=== PATIENT | female | born 1960 | race African-American/Black ===

== ENCOUNTER 2016-09-18 14:56 | Emergency (ER) | payer MEDICAID ==
[~2016-09-18] VITALS: Ht 165.1 cm; Wt 105.7 kg
[~2016-09-18 14:56] MED LIST: ANTIVERT25 MG ORAL; CYCLOBENZAPRINE10 MG ORAL; IBUPROFEN600 MG ORAL; MECLIZINE HCL25 MG ORAL; NAPROSYN375 M1 ORAL; NAPROSYN500 M1 ORAL; NKM; ZOFRAN ODT4 MG ORAL
[2016-09-18 16:39] VITALS: BP 125/81
[2016-09-18 16:57] VITALS: BP 125/81
--- NOTE | 2016-09-18 17:35 | Emergency Room Report ---
History of Present Illness General Chief Complaint: Headache Source: Patient Present Illness HPI 56-year-old female presents to ED for evaluation. States that yesterday when talking to family members she felt a sudden "burst" in her head. States there is minimal pain in immediately resolved. Patient states that she's had similar pains symptoms in the past. Nothing different today. Patient is here for evaluation. Patient notes headache today as well. Throbbing, 5/10 across the forehead. Denies photophobia, blurry vision, nausea or vomiting. Denies neck stiffness. Denies fevers or chills. No other aggravating or relieving factors. Denies any other associated symptom Allergies: Coded Allergies: PENICILLINS (Unverified Allergy, Severe, Shortness of Breath, 06/23/14) EGG (Verified Allergy, Mild, 03/17/15) AMOXICILLIN (Verified Allergy, Unknown, 07/21/13) NUT - UNSPECIFIED (Verified Allergy, Unknown, 03/17/15) SULFONYLUREAS (Verified Allergy, Unknown, 07/21/13) SULFUR DIOXIDE (Verified Allergy, Unknown, 02/24/16) Sesame Seed (Verified Allergy, Unknown, 03/17/15) Patient History Past Medical History: none Past Surgical History: none Pertinent Family History: none Social History: Denies: alcohol use, drug use, smoking Now: No Immunizations: UTD Reviewed Nursing Documentation: PMH: Agreed, PSxH: Agreed Nursing Documentation-PMH Hx Cardiac Problems: No - Thyroid problem Hx Hypertension: No Hx Pacemaker: No Hx Asthma: No Hx COPD: No Hx Cancer: No Hx Neurological Problems: No - Steel lizzy in left hip 1992 Hx Cerebrovascular Accident: No Hx Seizures: No Review of Systems All Other Systems: negative except mentioned in HPI Physical Exam Vital Signs Date Time Temp Pulse Resp B/P Pulse Ox O2 Delivery O2 Flow Rate FiO2 09/18/16 15:41 98.2 75 20 137/88 96 Room Air Sp02 EP Interpretation: reviewed, normal General Appearance: no apparent distress, alert, GCS 15, non-toxic Head: normocephalic, atraumatic Eyes: bilateral eye PERRL, bilateral eye normal inspection ENT: hearing grossly normal, normal pharynx, no angioedema, normal voice Neck: full range of motion, supple, no meningismus, supple/symm/no masses Respiratory: chest non-tender, lungs clear, normal breath sounds, speaking full sentences Cardiovascular #1: regular rate, rhythm, no edema Cardiovascular #2: 2+ carotid (R), 2+ carotid (L), 2+ radial (R), 2+ radial (L) , 2+ dorsalis pedis (R), 2+ dorsalis pedis (L) Gastrointestinal: normal bowel sounds, non tender, soft, non-distended, no guarding, no rebound Rectal: deferred Genitourinary: normal inspection, no CVA tenderness Musculoskeletal: back normal, gait/station normal, normal range of motion, non- tender Neurologic: alert, oriented x3, responsive, motor strength/tone normal, sensory intact, speech normal Psychiatric: judgement/insight normal, memory normal, mood/affect normal, no suicidal/homicidal ideation Reflexes: 3+ bicep (R), 3+ bicep (L), 3+ tricep (R), 3+ tricep (L), 3+ knee (R) , 3+ knee (L) Skin: normal color, no rash, warm/dry, well hydrated Lymphatic: no adenopathy Medical Decision Making Diagnostic Impression: Primary Impression: Headache Qualified Codes: R51 - Headache ER Course Hospital Course 56-year-old female presents ED complaining of "burst" in head with headache. Differential diagnoses include: skull fx, intracranial injury, concussion Clinical course Patient placed on stretcher. After initial history physical exam reveals a middle-aged female in no acute distress. There is no focal neurological deficits. No neck stiffness. Patient has steady gait and normal cerebellar exam Given presentation we will order a head CT CT head shows no acute process. Reassurance given Diagnosis - headache Stable and discharged to home. Followup with PMD. Return to ED if symptoms recur or worsen CT/MRI/US Diagnostic Results CT/MRI/US Diagnostic Results : Imaging Test Ordered: CT head Impression no acute process Last Vital Signs Date Time Temp Pulse Resp B/P Pulse Ox O2 Delivery O2 Flow Rate FiO2 09/18/16 16:57 98.1 75 15 125/81 98 Room Air Status: improved Disposition: HOME, SELF-CARE Condition: Stable Referrals: [facility],REFERRING (PCP) Patient Instructions: Tension Headache SARAH BALL M.D. Sep 18, 2016 17:35
--- NOTE | 2016-09-19 09:07 | Diagnostic Imaging Report ---
Indication: H/A Technique: Continuous helical CT scanning of the head was performed without intravenous contrast material. Axial and coronal 5 mm sections were generated. Dose: Total Dose Length Product - DLP [address] Dose Index - CTDIvol(s) 70.38 mGy. Comparison:07/21/2013 Findings: The ventricular system is normal in size and configuration. There is no shift of midline structures. No abnormal extra-axial fluid collections are noted. There is no evidence of intracerebral bleeding. No other abnormal high or low density areas are noted within the brain. Impression: No change from prior examination. Normal CT scan of the head without contrast material. This agrees with the reading. The CT scanner at [facility] is accredited by the [employer] and the scans are performed using protocols designed to limit radiation exposure to as low as reasonably achievable to attain images of sufficient resolution adequate for diagnostic evaluation.
== END 2016-09-18 17:33 | disposition home or self-care (01) ==
LOC: EMR 16:58
DX: R51 Headache (principal); Z88.0 Allergy status to penicillin; Z91.012 Allergy to eggs; Z88.1 Allergy status to other antibiotic agents; Z91.018 Allergy to other foods
CPT/HCPCS: 70450; 99284

== ENCOUNTER 2017-06-19 19:09 | Emergency (ER) | payer MEDICAID ==
[~2017-06-19] VITALS: Ht 165.1 cm; Wt 102.5 kg
[2017-06-19 19:45] VITALS: BP_SYST 137; BP_SYST 138; BP_SYST 147; BP_DIAS 82; BP_DIAS 85; BP_DIAS 87
[2017-06-19 20:15] LABS: BASOPHILS % (AUTO) 0.7 % (0.0-2.0); EOSINOPHILS % (AUTO) 3.6 % (0.0-3.0); LYMPHOCYTES % (AUTO) 43.7 % (20.0-45.0); MEAN CORPUSCULAR HEMOGLOBIN 27.2 PG (27.0-31.0); MEAN CORPUSCULAR HGB CONC 31.5 G/DL (32.0-36.0); MEAN CORPUSCULAR VOLUME 86 FL (80-99); MEAN PLATELET VOLUME 7.3 FL (6.5-10.1); NEUTROPHILS % (AUTO) 46.1 % (45.0-75.0); PLATELET COUNT 257 K/UL (150-450); RED BLOOD COUNT 4.82 M/UL (4.20-5.40); RED CELL DISTRIBUTION WIDTH 14.2 % (11.6-14.8)
[2017-06-19 20:27] LABS: ANION GAP 10 mmol/L (5-15); CALCIUM 9.8 MG/DL (8.5-10.1); CARBON DIOXIDE 28 MMOL/L (21-32); CHLORIDE 103 MMOL/L (98-107); GLOMERULAR FILTRATION RATE > 60 mL/min (>60); POTASSIUM 3.9 MMOL/L (3.5-5.1); SODIUM 141 MMOL/L (136-145)
[2017-06-19 20:28] LABS: PROTHROMBIN TIME 10.3 SEC (9.30-11.50)
[2017-06-19] MEDS: Sodium Chloride 500ML 550 ML IV SCH ×2 (20:34→22:23)
[2017-06-19 20:40] LABS: ALANINE AMINOTRANSFERASE 24 U/L (12-78); ALBUMIN/GLOBULIN RATIO 0.6 (1.0-2.7); ASPARTATE AMINO TRANSFERASE 20 U/L (15-37); THYROID STIMULATING HORMONE 1.332 uiU/mL (0.358-3.740); TOTAL PROTEIN 8.3 G/DL (6.4-8.2)
[2017-06-19] MEDS ORDERED: LISINOPRIL2.5 MG ORAL (20:40)
[2017-06-19 21:29] LABS: ERYTHROCYTE SEDIMENTATION RATE 60 MM/HR (0-30)
[2017-06-19 21:45] LABS: APPEARANCE,URINE CLEAR; KETONES,URINE NEGATIVE (NEGATIVE); LEUKOCYTE ESTERASE ,URINE NEGATIVE (NEGATIVE); NITRITE,URINE NEGATIVE (NEGATIVE); PH,URINE 6 (4.5-8.0); PROTEIN,URINE NEGATIVE (NEGATIVE); UROBILINOGEN,URINE NORMAL MG/DL (0.0-1.0)
[2017-06-19 21:49] VITALS: BP 125/89
[2017-06-19 22:01] LABS: BACTERIA,URINE FEW /HPF; SQUAMOUS EPITHELIAL CELL,UR FEW /LPF (NONE/OCC); WBC,URINE 0-2 /HPF (0 - 2)
[2017-06-19 23:13] VITALS: BP 107/81
--- NOTE | 2017-06-19 23:25 | Emergency Room Report ---
History of Present Illness General Chief Complaint: General Complaint Source: Patient Present Illness HPI Patient was started on Lisinopril last . She took it 2 days and felt awful with low blood pressure. She stopped but still felt not well. Palpitations BP in MD office to start was 122/96. Some chest pressure. No NVD. No dysuria. Feels slightly dizzy when stands. No fevers. LNMP was 2 years ago, but still some flashes. No polies. Increased stress. Allergies: Coded Allergies: PENICILLINS (Unverified Allergy, Severe, Shortness of Breath, 06/23/14) EGG (Verified Allergy, Mild, 03/17/15) AMOXICILLIN (Verified Allergy, Unknown, 07/21/13) NUT - UNSPECIFIED (Verified Allergy, Unknown, 03/17/15) SULFONYLUREAS (Verified Allergy, Unknown, 07/21/13) SULFUR DIOXIDE (Verified Allergy, Unknown, 02/24/16) Sesame Seed (Verified Allergy, Unknown, 03/17/15) Patient History Past Medical History: see triage record Social History: Denies: smoking, alcohol use, drug use Social History Narrative caring for ill father and now mother also ill Last Menstrual Period: None Reviewed Nursing Documentation: PMH: Agreed, PSxH: Agreed Nursing Documentation-PMH Hx Cardiac Problems: No - Thyroid problem Hx Hypertension: No Hx Pacemaker: No Hx Asthma: No Hx COPD: No Hx Cancer: No Hx Neurological Problems: No - Steel lizzy in left hip 1992 Hx Cerebrovascular Accident: No Hx Seizures: No Review of Systems All Other Systems: negative except mentioned in HPI Physical Exam Vital Signs Date Time Temp Pulse Resp B/P (MAP) Pulse Ox O2 Delivery O2 Flow Rate FiO2 06/19/17 19:16 99.1 110 18 147/91 98 Room Air Sp02 EP Interpretation: reviewed, normal General Appearance: well appearing, no apparent distress, GCS 15 Head: normocephalic Eyes: bilateral eye normal inspection, bilateral eye PERRL ENT: moist mucus membranes Neck: supple Respiratory: lungs clear, normal breath sounds Cardiovascular #1: regular rate, rhythm Cardiovascular #2: 2+ radial (R) Gastrointestinal: normal inspection, normal bowel sounds, non tender, no mass, non-distended Musculoskeletal: back normal, gait/station normal, normal range of motion Neurologic: alert, oriented x3, grossly normal Psychiatric: anxious Skin: normal inspection, warm/dry Medical Decision Making Diagnostic Impression: Primary Impression: Labile hypertension Additional Impression: Stress ER Course Patient presents with multiple symptoms after taking lisinopril for 2 days. DDx : electrolyte abnormalities, hypotension, adverse reaction to medication, anxiety/stress, thyroid dysfunction amongst others. Hx and exam against PE. Evaluation with EKG, CXR, labs. Treatment with gentle hydration and consider ativan. EKG without injury. CXR normal. Labs neg troponin and rest normal. Improved with treatment. Discussed plan for BP management and stress reduction. Patient stable for outpatient observation and treatment. Laboratory Tests Test 06/19/17 20:00 06/19/17 21:30 White Blood Count 7.0 K/UL (4.8-10.8) Red Blood Count 4.82 M/UL (4.20-5.40) Hemoglobin 13.1 G/DL (12.0-16.0) Hematocrit 41.6 % (37.0-47.0) Mean Corpuscular Volume 86 FL (80-99) Mean Corpuscular Hemoglobin 27.2 PG (27.0-31.0) Mean Corpuscular Hemoglobin Concent 31.5 G/DL (32.0-36.0) L Red Cell Distribution Width 14.2 % (11.6-14.8) Platelet Count 257 K/UL (150-450) Mean Platelet Volume 7.3 FL (6.5-10.1) Neutrophils (%) (Auto) 46.1 % (45.0-75.0) Lymphocytes (%) (Auto) 43.7 % (20.0-45.0) Monocytes (%) (Auto) 6.0 % (1.0-10.0) Eosinophils (%) (Auto) 3.6 % (0.0-3.0) H Basophils (%) (Auto) 0.7 % (0.0-2.0) Erythrocyte Sedimentation Rate 60 MM/HR (0-30) H Prothrombin Time 10.3 SEC (9.30-11.50) Prothrombin Time INR 1.0 (0.9-1.1) PTT 27 SEC (23-33) Sodium Level 141 MMOL/L (136-145) Potassium Level 3.9 MMOL/L (3.5-5.1) Chloride Level 103 MMOL/L (98-107) Carbon Dioxide Level 28 MMOL/L (21-32) Anion Gap 10 mmol/L (5-15) Blood Urea Nitrogen 13 mg/dL (7-18) Creatinine 1.0 MG/DL (0.55-1.30) Estimate Glomerular Filtration Rate > 60 mL/min (>60) Glucose Level 105 MG/DL (74-106) Calcium Level 9.8 MG/DL (8.5-10.1) Total Bilirubin 0.2 MG/DL (0.2-1.0) Aspartate Amino Transferase (AST) 20 U/L (15-37) Alanine Aminotransferase (ALT) 24 U/L (12-78) Alkaline Phosphatase 101 U/L (46-116) Total Creatine Kinase 122 U/L (26-308) Troponin I 0.000 ng/mL (0.000-0.056) Pro-B-Type Natriuretic Peptide 27 pg/mL (0-125) Total Protein 8.3 G/DL (6.4-8.2) H Albumin 3.2 G/DL (3.4-5.0) L Globulin 5.1 g/dL Albumin/Globulin Ratio 0.6 (1.0-2.7) L Thyroid Stimulating Hormone (TSH) 1.332 uiU/mL (0.358-3.740) Urine Color Pale yellow Urine Appearance Clear Urine pH 6 (4.5-8.0) Urine Specific [place] 1.005 (1.005-1.035) Urine Protein Negative (NEGATIVE) Urine Glucose (UA) Negative (NEGATIVE) Urine Ketones Negative (NEGATIVE) Urine Occult Blood 1+ (NEGATIVE) H Urine Nitrite Negative (NEGATIVE) Urine Bilirubin Negative (NEGATIVE) Urine Urobilinogen Normal MG/DL (0.0-1.0) Urine Leukocyte Esterase Negative (NEGATIVE) Urine RBC 2-4 /HPF (0 - 2) H Urine WBC 0-2 /HPF (0 - 2) Urine Squamous Epithelial Cells Few /LPF (NONE/OCC) Urine Bacteria Few /HPF (NONE) EKG Diagnostic Results Rate: normal Rhythm: NSR ST Segments: no acute changes Rhythm Strip Diag. Results EP Interpretation: yes Rhythm: NSR, no PVC's, no ectopy Chest X-Ray Diagnostic Results Chest X-Ray Diagnostic Results : Chest X-Ray Ordered: Yes # of Views/Limited/Complete: 1 View Indication: Other Interpretation: no consolidation, no effusion Impression: No acute disease Electronically Signed by: Gonzalez Rivero MD Last Vital Signs Date Time Temp Pulse Resp B/P (MAP) Pulse Ox O2 Delivery O2 Flow Rate FiO2 06/19/17 23:40 98.6 84 17 110/79 100 Room Air Status: improved Disposition: HOME, SELF-CARE Condition: Improved Scripts Lorazepam* (ATIVAN*) 0.5 Mg Tablet 0.5 MG ORAL THREE TIMES A DAY, #10 TAB Prov: Gonzalez Rivero M.D. 06/19/17 Referrals: NON PHYSICIAN (PCP) Gonzalez Rivero M.D. Jun 19, 2017 23:25
[2017-06-19] MEDS ORDERED: ATIVAN0.5 MG ORAL (23:27)
[2017-06-19 23:30] VITALS: BP 110/79
[2017-06-19 23:40] VITALS: BP 110/79
--- NOTE | 2017-06-20 10:27 | Diagnostic Imaging Report ---
Indication: Chest pain Technique: One view of the chest Comparison: none Findings: Lungs and pleural spaces are clear. Heart size is normal. Mildly ectatic tortuous aorta Impression: No acute process
--- NOTE | 2017-06-20 19:22 | Cardiology Report ---
APPROVED REPORT EKG Measurement Heart [id number] Normal sinus rhythm Cannot rule out Anterior infarct, age undetermined Abnormal ECG
== END 2017-06-19 23:40 | disposition home or self-care (01) ==
LOC: EMR 20:00
DX: R09.89 Other specified symptoms and signs involving the circulatory and respiratory systems (principal); F43.9 Reaction to severe stress, unspecified; Z91.012 Allergy to eggs; Z91.018 Allergy to other foods; Z88.0 Allergy status to penicillin; Z88.2 Allergy status to sulfonamides
CPT/HCPCS: 36415; 71010; 80053; 81003; 82550; 83880; 84443; 84484; 85025; 85610; 85651; 85730; 93005; 96360; 99284

== ENCOUNTER 2017-06-21 13:00 | Emergency (ER) | payer MEDICAID ==
[~2017-06-21] VITALS: Ht 165.1 cm; Wt 102.1 kg
[~2017-06-21 13:00] MED LIST changes: +ATIVAN0.5 MG ORAL; +LISINOPRIL2.5 MG ORAL
[2017-06-21 14:08] VITALS: BP 127/92
[2017-06-21 14:13] VITALS: BP 128/84
[2017-06-21 14:15] VITALS: BP 136/81
--- NOTE | 2017-06-21 14:46 | Emergency Room Report ---
History of Present Illness General Chief Complaint: General Complaint Present Illness HPI 57 YO Female presents to the ED c/o elevated BP at home "spiking" when she stands and going up to 180/100's acute onset after taking lisinopril for two days, on Jun.17. pt. has since d/c'd medication. pt not sure why her PMD rx' d it to her. Pt. reports feeling of shakiness ever since that comes and goes. PT denies night sweats, changes in sleep or changes in weight. Pt denies swelling in the LE's. Denies CP, Palpitations, LOC, AMS, dizziness, Changes in Vision, Sensation, paresthesias, or a sudden severe headache. Allergies: Coded Allergies: PENICILLINS (Unverified Allergy, Severe, Shortness of Breath, 06/23/14) EGG (Verified Allergy, Mild, 03/17/15) AMOXICILLIN (Verified Allergy, Unknown, 07/21/13) NUT - UNSPECIFIED (Verified Allergy, Unknown, 03/17/15) SULFONYLUREAS (Verified Allergy, Unknown, 07/21/13) SULFUR DIOXIDE (Verified Allergy, Unknown, 02/24/16) Sesame Seed (Verified Allergy, Unknown, 03/17/15) Patient History Past Medical History: see triage record Past Surgical History: none Pertinent Family History: none Now: No Immunizations: UTD Reviewed Nursing Documentation: PMH: Agreed, PSxH: Agreed Nursing Documentation-PMH Hx Cardiac Problems: No - Thyroid problem Hx Hypertension: No Hx Pacemaker: No Hx Asthma: No Hx COPD: No Hx Cancer: No Hx Neurological Problems: No - Steel lizzy in left hip 1992 Hx Cerebrovascular Accident: No Hx Seizures: No Review of Systems All Other Systems: negative except mentioned in HPI Physical Exam Vital Signs Date Time Temp Pulse Resp B/P (MAP) Pulse Ox O2 Delivery O2 Flow Rate FiO2 06/21/17 13:14 98.4 93 18 130/81 99 Room Air Sp02 EP Interpretation: reviewed, normal General Appearance: no apparent distress, alert, GCS 15, non-toxic Head: normocephalic, atraumatic Eyes: bilateral eye normal inspection, bilateral eye PERRL ENT: hearing grossly normal, no angioedema, normal voice Neck: full range of motion, supple/symm/no masses Respiratory: lungs clear, normal breath sounds, speaking full sentences Cardiovascular #1: regular rate, rhythm, no edema Musculoskeletal: back normal, normal range of motion, non-tender Neurologic: alert, oriented x3, responsive, motor strength/tone normal, sensory intact, speech normal, no pronator, other - no facial droop, grossly normal Skin: normal color, no rash, warm/dry, well hydrated Medical Decision Making PA Attestation Dr. carnes is my supervising Physician whom patient management has been discussed with. Diagnostic Impression: Primary Impression: Elevated blood pressure reading ER Course 57 YO Female presents to the ED c/o elevated BP at home "spiking" when she stands and going up to 180/100's acute onset after taking lisinopril for two days, on Jun.17. pt. has since d/c'd medication. pt not sure why her PMD rx' d it to her. Pt. reports feeling of shakiness ever since that comes and goes. PT denies night sweats, changes in sleep or changes in weight. Pt denies swelling in the LE's. Denies CP, Palpitations, LOC, AMS, dizziness, Changes in Vision, Sensation, paresthesias, or a sudden severe headache. Ddx considered but are not limited to HTN, hypochondriasis, anxiety, hyperthyroid just to name a few. Vital signs: are WNL, pt. is afebrile H&PE are most consistent with normal PE ORDERS: none required at this time, the diagnosis is clinical ED INTERVENTIONS: -orthostatic Vital signs were normal. no evidence of dehydration discussed with this patient possibility of anxiety plan significant role in her symptoms. Also discussed with patient that when measuring blood pressure there is a specific way and measuring and certain cuff sizes and that she may be having accurate readings. Discussed with this patient that at this time there is no condition that I would treat pharmacologically and the she is stable for outpatient follow up. I also discussed with this patient that occasion including its metabolites with be out of her system by now. -Encourage patient to utilize her Ativan that she was previously prescribed at her visit here in the emergency department 2 days ago. DISCHARGE: At this time pt. is stable for d/c to home. Will provide printed patient care instructions, and any necessary prescriptions. Care plan and follow up instructions have been discussed with the patient prior to discharge. Last Vital Signs Date Time Temp Pulse Resp B/P (MAP) Pulse Ox O2 Delivery O2 Flow Rate FiO2 12/12/17 14:15 106 136/81 06/21/17 13:14 98.4 18 99 Room Air Disposition: HOME, SELF-CARE Condition: Stable Scripts Blood Pressure Test Kit-Medium (BLOOD PRESSURE MONITOR) 1 Each Kit EACH for For High Blood Pressure, #1 Prov: Ria Bruce 06/21/17 Patient Instructions: Medical Screening Exam Additional Instructions: *Keep BP log Take medications as directed. Follow up with a Primary Care Provider in 3-5 days, even if your symptoms have resolved. --Please review list of primary care clinics, if you do not already have a primary care provider Return sooner to ED if new symptoms occur, or current symptoms become worse. - Please note that this Emergency Department Report was dictated using [employer] preservation officer technology software, occasionally this can lead to erroneous entry secondary to interpretation by the dictation equipment. Ria Bruce Jun 21, 2017 14:45
[2017-06-21] MEDS ORDERED: BLOOD PRESSURE MC (14:52)
[2017-06-21] MEDS ORDERED: LORazepam 0.5mg tab ORAL ONE (15:00)
== END 2017-06-21 14:08 | disposition home or self-care (01) ==
LOC: EMR 13:50
DX: R03.0 Elevated blood-pressure reading, without diagnosis of hypertension (principal); Z88.0 Allergy status to penicillin; Z88.2 Allergy status to sulfonamides; Z91.012 Allergy to eggs; Z91.018 Allergy to other foods
CPT/HCPCS: 99283

== ENCOUNTER 2017-07-21 14:14 | Emergency (ER) | payer MEDICAID ==
[~2017-07-21] VITALS: Ht 165.1 cm; Wt 102.1 kg
[~2017-07-21 14:14] MED LIST changes: +BLOOD PRESSURE MC
[2017-07-21 14:47] VITALS: BP 152/96
[2017-07-21 15:19] LABS: APPEARANCE,URINE CLEAR; BILIRUBIN, URINE NEGATIVE (NEGATIVE); COLOR,URINE PALE YELLOW; GLUCOSE, URINE (UA) NEGATIVE (NEGATIVE); KETONES,URINE NEGATIVE (NEGATIVE); LEUKOCYTE ESTERASE ,URINE 1+ (NEGATIVE); NITRITE,URINE NEGATIVE (NEGATIVE); PH,URINE 6.5 (4.5-8.0); PROTEIN,URINE NEGATIVE (NEGATIVE); UROBILINOGEN,URINE NORMAL MG/DL (0.0-1.0)
[2017-07-21] MEDS ORDERED: TYLENOL COLD M1 EAC3 PO (15:50)
[2017-07-21 15:51] VITALS: BP 141/85
--- NOTE | 2017-07-25 14:50 | Emergency Room Report ---
History of Present Illness General Chief Complaint: General Complaint Source: Patient Present Illness HPI 57-year-old female presents ED complaining of sinus pressure, cough, runny nose. States been there for many days on and off. Denies fevers chills. States cough is productive with yellowish sputum. Afebrile in triage. Denies sore throat. Denies earache. Denies sick contacts or recent travel. No other aggravating or leading factors. Denies any other associated symptoms Allergies: Coded Allergies: PENICILLINS (Unverified Allergy, Severe, Shortness of Breath, 06/23/14) EGG (Verified Allergy, Mild, 03/17/15) AMOXICILLIN (Verified Allergy, Unknown, 07/21/13) NUT - UNSPECIFIED (Verified Allergy, Unknown, 03/17/15) SULFONYLUREAS (Verified Allergy, Unknown, 07/21/13) SULFUR DIOXIDE (Verified Allergy, Unknown, 02/24/16) Sesame Seed (Verified Allergy, Unknown, 03/17/15) Patient History Past Medical History: none Past Surgical History: none Pertinent Family History: none Social History: Denies: smoking, alcohol use, drug use Last Menstrual Period: menopause Now: No Immunizations: UTD Reviewed Nursing Documentation: PMH: Agreed, PSxH: Agreed Nursing Documentation-PMH Past Medical History: No History, Except For Hx Cardiac Problems: No - Thyroid problem Hx Hypertension: No Hx Pacemaker: No Hx Asthma: No Hx COPD: No Hx Cancer: No Hx Neurological Problems: No - Steel lizzy in left hip 1992 Hx Cerebrovascular Accident: No Hx Seizures: No Review of Systems All Other Systems: negative except mentioned in HPI Physical Exam Vital Signs Date Time Temp Pulse Resp B/P (MAP) Pulse Ox O2 Delivery O2 Flow Rate FiO2 07/21/17 14:37 98.8 87 16 152/96 100 Room Air Sp02 EP Interpretation: reviewed, normal General Appearance: no apparent distress, alert, GCS 15, non-toxic Head: normocephalic, atraumatic Eyes: bilateral eye normal inspection, bilateral eye PERRL ENT: hearing grossly normal, normal pharynx, no angioedema, normal voice Neck: full range of motion, supple/symm/no masses Respiratory: chest non-tender, lungs clear, normal breath sounds, speaking full sentences Cardiovascular #1: regular rate, rhythm, no edema Cardiovascular #2: 2+ carotid (R), 2+ carotid (L), 2+ radial (R), 2+ radial (L) , 2+ dorsalis pedis (R), 2+ dorsalis pedis (L) Gastrointestinal: normal bowel sounds, non tender, soft, non-distended, no guarding, no rebound Rectal: deferred Genitourinary: normal inspection, no CVA tenderness Musculoskeletal: back normal, gait/station normal, normal range of motion, non- tender Neurologic: alert, oriented x3, responsive, motor strength/tone normal, sensory intact, speech normal Psychiatric: judgement/insight normal, memory normal, mood/affect normal, no suicidal/homicidal ideation Reflexes: 3+ bicep (R), 3+ bicep (L), 3+ tricep (R), 3+ tricep (L), 3+ knee (R) , 3+ knee (L) Skin: normal color, no rash, warm/dry, well hydrated Lymphatic: no adenopathy Medical Decision Making Diagnostic Impression: Primary Impression: Upper respiratory infection Qualified Codes: J06.9 - Acute upper respiratory infection, unspecified ER Course Hospital Course 57-year-old female presents to ED complaining of cough, runny nose with sinus pressure Differential diagnoses include: URI, pharyngitis, otitis media, asthma Clinical course Patient placed on stretcher. After initial history, physical exam reveals a middle aged female in no acute distress. Bilateral TM unremarkable. No pharyngeal erythema. No tonsillar exudates. No lymphadenopathy. lungs clear. abdomen soft. Clinical findings consistent with URI. Reassurance given. treatment is supportive therapy Diagnosis - URI Stable and discharged home with Rx tylenol mutli symptom. Instructed to followup with PMD. Return to ED if symptoms recur or worsen Last Vital Signs Date Time Temp Pulse Resp B/P (MAP) Pulse Ox O2 Delivery O2 Flow Rate FiO2 07/21/17 15:51 98.8 81 16 141/85 100 Room Air Status: improved Disposition: HOME, SELF-CARE Condition: Stable Scripts D-Methorphan/Pe/Acetaminophen (TYLENOL COLD MULTI-SYMP CAPLET) 1 Each Tablet 1 EACH PO Q6HR, #30 TAB Prov: SARAH BALL M.D. 07/21/17 Referrals: [facility]ERR[facility] (PCP) Patient Instructions: Upper Respiratory Infection, Adult, [id number] SARAH BALL M.D. Jul 25, 2017 14:50
== END 2017-07-21 15:51 | disposition home or self-care (01) ==
LOC: EMR 14:55
DX: J06.9 Acute upper respiratory infection, unspecified (principal); Z88.0 Allergy status to penicillin; Z88.2 Allergy status to sulfonamides; Z91.012 Allergy to eggs; Z91.018 Allergy to other foods
CPT/HCPCS: 81003; 99283

== ENCOUNTER 2017-10-20 10:33 | Emergency (ER) | payer MEDICAID ==
[~2017-10-20] VITALS: Ht 165.1 cm; Wt 99.8 kg
[~2017-10-20 10:33] MED LIST changes: +TYLENOL COLD M1 EAC3 PO
[2017-10-20] MEDS ORDERED: Ketorolac 60mg Inj IM ONE (11:00)
[2017-10-20] MEDS ORDERED: Cyclobenzaprine 10mg Tab ORAL ONE (11:00)
[2017-10-20] MEDS ORDERED: Acetaminophen 500mg (ES) tab ORAL ONE (11:00)
[2017-10-20 12:03] VITALS: BP 139/90
--- NOTE | 2017-10-20 12:49 | Diagnostic Imaging Report ---
Indication: Back pain Comparison: None Findings: 3 views of the lumbar spine were obtained. There is a suspected pars interarticularis defect at L5. No spondylolisthesis is deftly seen. Mild endplate spurs, sclerotic lumbar facets demonstrated. No definite fracture seen. Cholecystectomy clips are present. Bones are osteopenic. IMPRESSION: Suspected spondylolysis at L5. Degenerative changes as described above with osteopenia
--- NOTE | 2017-10-20 13:31 | Emergency Room Report ---
History of Present Illness General Chief Complaint: Lower Back Pain or Injury Source: Patient, Medical Record Present Illness HPI This patient states that 3 days ago she was working in her garden and felt fine that day. She states she was pulling weeds and bending over a lot. She states that the following day she noted pain in her low back. She states the pain also was radiating to her legs. She states the pain was much worse with movement or twisting. She denies trauma. She states she has a history of a bulging disc in her lumbar spine. She denies tingling or numbness. She denies weakness. She denies loss of bowel or bladder control. She has no other complaints. Allergies: Coded Allergies: PENICILLINS (Unverified Allergy, Severe, Shortness of Breath, 06/23/14) EGG (Verified Allergy, Mild, 03/17/15) AMOXICILLIN (Verified Allergy, Unknown, 07/21/13) NUT - UNSPECIFIED (Verified Allergy, Unknown, 03/17/15) SULFONYLUREAS (Verified Allergy, Unknown, 07/21/13) SULFUR DIOXIDE (Verified Allergy, Unknown, 02/24/16) Sesame Seed (Verified Allergy, Unknown, 03/17/15) Patient History Past Medical History: see triage record Social History: Denies: smoking, alcohol use, drug use Last Menstrual Period: 1 yr ago Reviewed Nursing Documentation: PMH: Agreed; PSxH: Agreed Nursing Documentation-PMH Past Medical History: No History, Except For Hx Cardiac Problems: No - Thyroid problem Hx Hypertension: No Hx Pacemaker: No Hx Asthma: No Hx COPD: No Hx Cancer: No Hx Neurological Problems: No - Steel lizzy in left hip 1992 Hx Cerebrovascular Accident: No Hx Seizures: No Review of Systems All Other Systems: negative except mentioned in HPI Physical Exam Vital Signs Date Time Temp Pulse Resp B/P (MAP) Pulse Ox O2 Delivery O2 Flow Rate FiO2 10/20/17 10:37 98.0 74 18 139/90 95 Room Air 98.1 Sp02 EP Interpretation: reviewed, normal General Appearance: no apparent distress, alert, GCS 15, non-toxic Head: normocephalic, atraumatic Eyes: bilateral eye normal inspection, bilateral eye PERRL ENT: hearing grossly normal, normal pharynx, no angioedema, normal voice Neck: full range of motion, supple/symm/no masses Respiratory: chest non-tender, lungs clear, normal breath sounds, speaking full sentences Cardiovascular #1: regular rate, rhythm, no edema Gastrointestinal: normal bowel sounds, non tender, soft, non-distended, no guarding, no rebound Rectal: deferred Musculoskeletal: other - Pain with ambulation. Tender to palpation along the mid lumbar spine and left paraspinal muscles. Neurologic: alert, oriented x3, responsive, motor strength/tone normal, sensory intact, speech normal Psychiatric: judgement/insight normal, memory normal, mood/affect normal, no suicidal/homicidal ideation Skin: normal color, no rash, warm/dry, well hydrated Medical Decision Making Diagnostic Impression: Primary Impression: Low back strain Additional Impression: Muscle spasm ER Course This patient has a clinical presentation consistent with low back muscle strain. There are no red flags on physical exam or history that would make me concerned for underlying fracture. I did obtain a lumbar spine x-ray. 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 However , there is no evidence of spondylolisthesis. The patient has pain with range of motion and has tenderness to palpation along the muscle. There is no evidence of compartment syndrome. There is no neurologic deficit. The patient was instructed on supportive home measures. No emergency medical condition was identified. The patient was given return precautions and followup instructions. Other X-Ray Diagnostic Results Other X-Ray Diagnostic Results : X-Ray ordered: Yas # of Views/Limited Vs Complete: Complete Indication: Pain EP Interpretation: No Interpretation: no dislocation, no soft tissue swelling, no fractures Impression: No acute disease Electronically Signed by: Marylou Last Vital Signs Date Time Temp Pulse Resp B/P (MAP) Pulse Ox O2 Delivery O2 Flow Rate FiO2 10/20/17 12:30 98.0 10/20/17 12:03 18 139/90 95 Room Air 10/20/17 10:37 74 Status: improved Disposition: HOME, SELF-CARE Condition: Improved Scripts Cyclobenzaprine Hcl* (FLEXERIL*) 10 Mg Tablet 10 MG ORAL TID PRN for Muscle Spasm, #20 TAB Prov: HUBERT PORTILLO D.OCourtney 10/20/17 Acetaminophen* (ACETAMINOPHEN EXTRA STRENGTH*) 500 Mg Tablet 500 MG ORAL Q8H PRN for Fever/Headache/Mild Pain, #30 TAB Prov: HUBERT PORTILLO D.O. 10/20/17 Lidocaine (Lidoderm) 1 Each Adh..patch 1 PATCH TOPIC DAILY, #7 PATCH 0 Refills Patch(es) may remain in place for up to 12 hours in any 24-hour period. Prov: HUBERT PORTILLO D.O. 10/20/17 Referrals: [facility]ERR[facility] (PCP) Patient Instructions: Low Back Sprain With [facility], Lumbosacral Strain HUBERT PORTILLO D.O. Oct 20, 2017 13:31
[2017-10-20] MEDS ORDERED: CYCLOBENZAPRINE10 MG ORAL (14:10)
[2017-10-20] MEDS ORDERED: ACETAMINOPHEN500 M3 ORAL (14:10)
[2017-10-20] MEDS ORDERED: LIDODERM700 M1 TOPIC (14:10)
[2017-10-20 14:15] VITALS: BP 130/72
== END 2017-10-20 14:15 | disposition home or self-care (01) ==
LOC: EMR 11:58
DX: S39.012A Strain of muscle, fascia and tendon of lower back, initial encounter (principal); X50.1XXA Overexertion from prolonged static or awkward postures, initial encounter; Y93.H2 Activity, gardening and landscaping; Y92.007 Garden or yard of unspecified non-institutional (private) residence as the place of occurrence of the external cause; M62.830 Muscle spasm of back; M85.88 Other specified disorders of bone density and structure, other site; Z88.0 Allergy status to penicillin; Z88.2 Allergy status to sulfonamides; Z91.012 Allergy to eggs; Z91.018 Allergy to other foods
CPT/HCPCS: 72110; 96372; 99284

== ENCOUNTER 2018-03-26 08:38 | Emergency (ER) | payer MEDICAID ==
[~2018-03-26] VITALS: Ht 165.1 cm; Wt 97.1 kg
[~2018-03-26 08:38] MED LIST changes: +ACETAMINOPHEN500 M3 ORAL; +LIDODERM700 M1 TOPIC
[2018-03-26 09:30] LABS: EOSINOPHILS % (AUTO) 3.8 % (0.0-3.0); HEMATOCRIT 39.9 % (37.0-47.0); HEMOGLOBIN 12.5 G/DL (12.0-16.0); LYMPHOCYTES % (AUTO) 29.4 % (20.0-45.0); MEAN CORPUSCULAR VOLUME 85 FL (80-99); MONOCYTES % (AUTO) 3.7 % (1.0-10.0); NEUTROPHILS % (AUTO) 62.1 % (45.0-75.0); PLATELET COUNT 230 K/UL (150-450); RED BLOOD COUNT 4.71 M/UL (4.20-5.40); RED CELL DISTRIBUTION WIDTH 13.5 % (11.6-14.8); WHITE BLOOD COUNT 4.3 K/UL (4.8-10.8)
--- NOTE | 2018-03-26 09:31 | Emergency Room Report ---
History of Present Illness General Chief Complaint: Abdominal Pain Source: Patient Present Illness HPI Patient presents with complaints of epigastric burning sensation mild nausea denies any vomiting Denies any lower abdominal pain Patient reports that her mom and of February and her symptoms started since then Patient also noticed some tinge of blood in her stool Denies any chest pain or shortness of breath denies any back or flank pain Patient reports that she is due and is getting a colonoscopy within the next month Allergies: Coded Allergies: PENICILLINS (Unverified Allergy, Severe, Shortness of Breath, 06/23/14) EGG (Verified Allergy, Mild, 03/17/15) AMOXICILLIN (Verified Allergy, Unknown, 07/21/13) NUT - UNSPECIFIED (Verified Allergy, Unknown, 03/17/15) SULFONYLUREAS (Verified Allergy, Unknown, 07/21/13) SULFUR DIOXIDE (Verified Allergy, Unknown, 02/24/16) Sesame Seed (Verified Allergy, Unknown, 03/17/15) Patient History Past Medical History: see triage record Pertinent Family History: none Last Menstrual Period: unk Reviewed Nursing Documentation: PMH: Agreed; PSxH: Agreed Nursing Documentation-PMH Past Medical History: No History, Except For Hx Cardiac Problems: No - Thyroid problem Hx Hypertension: No Hx Pacemaker: No Hx Asthma: No Hx COPD: No Hx Cancer: No Hx Neurological Problems: No - Steel lizzy in left hip 1992 Hx Cerebrovascular Accident: No Hx Seizures: No Review of Systems All Other Systems: negative except mentioned in HPI Physical Exam Vital Signs Date Time Temp Pulse Resp B/P (MAP) Pulse Ox O2 Delivery O2 Flow Rate FiO2 03/26/18 08:48 97.9 77 16 123/87 98 Room Air 97.9 Sp02 EP Interpretation: reviewed, normal General Appearance: well appearing, no apparent distress Head: normocephalic, atraumatic Eyes: bilateral eye PERRL, bilateral eye EOMI ENT: hearing grossly normal, normal pharynx, TMs + canals normal, uvula midline Neck: full range of motion, supple, no meningismus, no bony tend Respiratory: lungs clear, normal breath sounds, no rhonchi, no respiratory distress, no retraction, no accessory muscle use Cardiovascular #1: normal peripheral pulses, regular rate, rhythm, no edema, no gallop, no JVD, no murmur Gastrointestinal: normal bowel sounds, non tender, soft, no mass, no organomegaly, non-distended, no guarding, no hernia, no pulsatile mass, no rebound Genitourinary: no CVA tenderness Musculoskeletal: normal inspection Neurologic: oriented x3, responsive, 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, motor strength/ tone normal, sensory intact Psychiatric: mood/affect normal Skin: normal color, no rash, warm/dry, palpation normal Lymphatic: normal inspection, no adenopathy Medical Decision Making Diagnostic Impression: Primary Impression: Abdominal pain Additional Impression: Blood per rectum ER Course Multiple differentials considered Including but not limited to gastritis, bowel perforation diverticulosis and diverticulitis Patient's blood count including hemoglobin are at appropriate levels patient's abdominal exam on repeat evaluation remains soft and benign Upon time of disposition patient reports that she has some itchiness around her rectal area Patient provided with ointment and requires close outpatient follow-up She reports that she is getting a colonoscopy scheduled for outpatient ,, with blood cell 4.3 minimally low Chemistry within normal limits Last Vital Signs Date Time Temp Pulse Resp B/P (MAP) Pulse Ox O2 Delivery O2 Flow Rate FiO2 03/26/18 08:48 97.9 77 16 123/87 98 Room Air 97.9 Status: improved Disposition: HOME, SELF-CARE Condition: Improved Scripts Clotrimazole (Clotrimazole) 30 Gm Cream..g. 1 INCH RECTAL DAILY for 7 Days, GM Prov: Ashanti Robison DO 03/26/18 Famotidine (PEPCID AC) 20 Mg Tablet 20 MG PO DAILY, #12 TAB Prov: Ashanti Robison DO 03/26/18 Additional Instructions: Patient is provided with the discharge instructions notified to follow up with primary doctor in the next 2-3 days otherwise return to the er with any worsening symptoms. Please note that this report is being documented using [employer] technology. This can lead to erroneous entry secondary to incorrect interpretation by the dictating instrument. Ashanti Robison DO Mar 26, 2018 09:31
[2018-03-26 09:38] LABS: ANION GAP 7 mmol/L (5-15); BLOOD UREA NITROGEN 10 mg/dL (7-18); CALCIUM 9.1 MG/DL (8.5-10.1); CARBON DIOXIDE 27 MMOL/L (21-32); CHLORIDE 105 MMOL/L (98-107); CREATININE 0.8 MG/DL (0.55-1.30); POTASSIUM 4.2 MMOL/L (3.5-5.1); SODIUM 139 MMOL/L (136-145)
[2018-03-26 09:44] LABS: ALANINE AMINOTRANSFERASE 27 U/L (12-78); ALBUMIN 3.1 G/DL (3.4-5.0); ALBUMIN/GLOBULIN RATIO 0.7 (1.0-2.7); ALKALINE PHOSPHATASE 96 U/L (46-116); ASPARTATE AMINO TRANSFERASE 21 U/L (15-37); BILIRUBIN,TOTAL 0.2 MG/DL (0.2-1.0)
[2018-03-26] MEDS ORDERED: PEPCID AC20 M2 PO (11:10)
[2018-03-26] MEDS ORDERED: CLOTRIMAZOLE30 GM RECTAL (11:10)
[2018-03-26 11:13] VITALS: BP 125/80
== END 2018-03-26 11:13 | disposition home or self-care (01) ==
LOC: EMR 09:31
DX: R10.13 Epigastric pain (principal); Z88.0 Allergy status to penicillin; Z88.2 Allergy status to sulfonamides
CPT/HCPCS: 36415; 80053; 83690; 85025; 99283